=== PATIENT | female | born 1995 | race Caucasian/White ===

== ENCOUNTER 2018-12-31 17:57 | Emergency (ER) | payer SELFPAY, MEDICAID ==
[2018-12-31] MEDS: CEFTRIAXONE 1 GM INJ IM (18:25)
[2018-12-31] MEDS: TRIMETHOPRIM/SULFAMETHOX (DS) TAB PO (18:25)
[2018-12-31] MEDS: LIDOCAINE 1% (MDV) 20 ML INJ SC (18:25)
[2018-12-31] MEDS: IBUPROFEN 600 MG TAB PO (18:25)
== END 2018-12-31 18:50 | disposition home or self-care (01) ==
LOC: FTE 17:57
DX: L03.115 Cellulitis of right lower limb (principal); E11.9 Type 2 diabetes mellitus without complications
CPT/HCPCS: 96372; 99284-25